=== PATIENT | female | born 2005 | race Caucasian/White ===

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

== ENCOUNTER → 2023-02-16 | Outpatient (REF) | payer OTHER ==
[2023-02-16 15:40] LABS: GC DNA AMPLIFICATION NEGATIVE (NEGATIVE)
== END ==
LOC: M SFHCWAGY 13:04
PROVIDERS: ATTEND Specialist
DX: Z34.02 Encounter for supervision of normal first pregnancy, second trimester (principal)

== ENCOUNTER → 2023-02-23 | Outpatient (CLI) | payer OTHER | LOC: M WHC 08:52 | PROVIDERS: ATTEND Obstetrics & Gynecology | DX: Z34.92 Encounter for supervision of normal pregnancy, unspecified, second trimester (principal) ==

== ENCOUNTER → 2023-04-02 | Outpatient (CLI) | payer OTHER | LOC: M WHC 11:51 | PROVIDERS: ATTEND Obstetrics & Gynecology | DX: Z34.02 Encounter for supervision of normal first pregnancy, second trimester (principal) ==

== ENCOUNTER → 2023-04-22 | Outpatient (CLI) | payer OTHER ==
[2023-04-22 14:04] LABS: HEMATOCRIT 32.7 % (36.0-47.0); HEMOGLOBIN 10.6 g/dl (12.0-15.5); MEAN CORPUSCULAR HEMOGLOBIN 28.3 pg (27.0-33.0); MEAN CORPUSCULAR HGB CONC 32.4 g/dl (32.0-36.5); MEAN CORPUSCULAR VOLUME 87.2 fl (80.0-96.0); PLATELET COUNT, AUTOMATED 285 10^3/uL (150-450); RED BLOOD COUNT 3.75 10^6/uL (4.00-5.40); WHITE BLOOD COUNT 8.8 10^3/uL (4.0-10.0)
[2023-04-22 16:00] LABS: GC DNA AMPLIFICATION NEGATIVE (NEGATIVE)
== END ==
LOC: M PLALAB 08:41
PROVIDERS: ATTEND Obstetrics & Gynecology
DX: Z34.02 Encounter for supervision of normal first pregnancy, second trimester (principal)

== ENCOUNTER → 2023-06-16 | Outpatient (REF) | payer OTHER | LOC: M PLALAB 13:59 | PROVIDERS: ATTEND Advanced Practice Midwife | DX: Z34.80 Encounter for supervision of other normal pregnancy, unspecified trimester (principal) ==

== ENCOUNTER → 2023-07-03 | Outpatient (REF) | payer OTHER | LOC: M SFHCADAM 12:41 | PROVIDERS: ATTEND Physician Assistant | DX: R19.7 Diarrhea, unspecified (principal) ==

== ENCOUNTER 2023-07-07 16:15 | Inpatient (IN) | payer OTHER ==
[~2023-07-07] VITALS: Ht 162.6 cm; Wt 96.8 kg
[2023-07-07 16:33] VITALS: BP 135/84
[2023-07-07] MEDS ORDERED: HOME MED LIST COMPLETE! XX SCH (16:35)
[2023-07-07] MEDS ORDERED: OXYTOCIN DRIP 30 UNITS in IV 1 EA IV PRN (17:20)
[2023-07-07] MEDS ORDERED: LIDOCAINE 1% MDV 20ML VIAL INFIL PRN (17:20)
[2023-07-07 17:41] LABS: HEMATOCRIT 31.1 % (36.0-47.0); HEMOGLOBIN 10.3 g/dl (12.0-15.5); MEAN CORPUSCULAR HEMOGLOBIN 26.5 pg (27.0-33.0); MEAN CORPUSCULAR HGB CONC 33.1 g/dl (32.0-36.5); MEAN CORPUSCULAR VOLUME 79.9 fl (80.0-96.0); PLATELET COUNT, AUTOMATED 350 10^3/uL (150-450); RED BLOOD COUNT 3.89 10^6/uL (4.00-5.40); WHITE BLOOD COUNT 9.9 10^3/uL (4.0-10.0)
[2023-07-07] MEDS ORDERED: FAMOTIDINE 20 MG TAB PO ONE (18:30)
[2023-07-07 19:15] VITALS: BP 134/82
[2023-07-07] MEDS: miSOPROStol 50MCG 1/2 TABLET SL SCH ×2 (19:15→23:15)
[2023-07-07 20:16] VITALS: BP 129/87
[2023-07-07] MEDS ORDERED: NALBUPHINE HCL 1MG/0.1ML (100MG/10ML) MDV IV ONE (21:15)
[2023-07-07 21:43] VITALS: BP 131/75
[2023-07-07] MEDS ORDERED: ONDANSETRON 4MG 2ML VIAL IV PRN (22:30)
[2023-07-07 23:12] VITALS: BP 117/74
[2023-07-07] MEDS ORDERED: LR 1,000 ML IV SCH (23:35)
[2023-07-07] MEDS ORDERED: OXYTOCIN DRIP 30 UNITS in IV 1 EA IV SCH (23:35)
[2023-07-08] VITALS (26 sets, daily range): BP systolic 115–144; BP diastolic 66–102; O2SAT 98
[2023-07-08] MEDS ORDERED: EPIDURAL/PCA KEYS XX PRN (00:10)
[2023-07-08] MEDS ORDERED: ONDANSETRON 4MG 2ML VIAL IV PRN (00:10)
[2023-07-08] MEDS ORDERED: LR 500 ML IV PRN (00:10)
[2023-07-08] MEDS ORDERED: diphenhydrAMINE 50MG/ML VIAL IV PRN (00:10)
[2023-07-08] MEDS ORDERED: ePHEDrine SULFATE 25 MG/5 ML(5MG/ML) SYRINGE IVP PRN (00:10)
[2023-07-08] MEDS ORDERED: FENTANYL/ROPIVACAINE/NACL BAG 100 ML EPIDURAL SCH (00:10)
[2023-07-08] MEDS ORDERED: NALOXONE INJ 0.4MG/1ML VIAL IV PRN (00:10)
[2023-07-08] MEDS ORDERED: DOCUSATE SODIUM 100MG CAPSULE PO PRN (02:45)
[2023-07-08] MEDS ORDERED: METHYLERGONOVINE MALEATE 0.2 MG TAB PO PRN (02:45)
[2023-07-08] MEDS ORDERED: DIBUCAINE 1% OINTMENT 30GM TOP PRN (02:45)
[2023-07-08] MEDS ORDERED: RHOGAM 300MCG (1500IU) INJ IM SCH (02:45)
[2023-07-08] MEDS ORDERED: ACETAMINOPHEN TAB 650MG DOSE (2X325MG) PO PRN (02:45)
[2023-07-08] MEDS: IBUPROFEN 800 MG TAB PO PRN ×2 (08:26→17:48)
[2023-07-08] MEDS: PRENATAL VITAMINS CHEWABLE TABLET PO SCH (08:26)
[2023-07-08] MEDS: ACETAMINOPHEN 500 MG TAB PO PRN (15:52)
[2023-07-09] MEDS: ACETAMINOPHEN 500 MG TAB PO PRN (04:59)
[2023-07-09 06:00] VITALS: BP 131/80; O2SAT 100
[2023-07-09] MEDS: PRENATAL VITAMINS CHEWABLE TABLET PO SCH (09:21)
[2023-07-09] MEDS: IBUPROFEN 600MG TAB PO PRN ×2 (09:21→18:40)
[2023-07-09 18:00] VITALS: BP 126/68; O2SAT 99
[2023-07-10] MEDS: IBUPROFEN 800 MG TAB PO PRN (03:31)
[2023-07-10 06:00] VITALS: BP 127/78; O2SAT 99
[2023-07-10] MEDS: PRENATAL VITAMINS CHEWABLE TABLET PO SCH (08:09)
[2023-07-10] MEDS ORDERED: MEASLES,MUMPS,RUBELLA VACCINE INJ (MMR-II) SC.IMMUN ONE (09:00)
== END 2023-07-10 15:00 | disposition home or self-care (01) | DRG 560 ==
LOC: M LDO 16:15 → M LDI 17:09 → M OBS 07-08 05:00
PROVIDERS: ADMIT Specialist; ATTEND Specialist
PROC: 10E0XZZ Delivery of Products of Conception, External Approach (ICD-10-PCS; principal; 2023-07-08)
PROC: 0KQM0ZZ Repair Perineum Muscle, Open Approach (ICD-10-PCS; 2023-07-08)
DX: O42.02 Full-term premature rupture of membranes, onset of labor within 24 hours of rupture (principal); Z3A.39 39 weeks gestation of pregnancy; Z88.1 Allergy status to other antibiotic agents; Z88.2 Allergy status to sulfonamides; Z37.0 Single live birth; O70.1 Second degree perineal laceration during delivery

== ENCOUNTER → 2025-06-21 | Outpatient (CLI) | payer OTHER ==
[2025-06-21 12:57] LABS: URINE PREG TEST NEGATIVE (NEGATIVE)
[2025-06-21 13:00] LABS: BASO # 0.1 10^3/uL (0.0-0.2); BASO % 1.0 % (0.0-1.0); EOS # 0.2 10^3/uL (0.0-0.5); EOS % 4.2 % (0.0-3.0); LYMPH # 2.2 10^3/uL (1.5-5.0); LYMPH % 38.6 % (24.0-44.0); MONO # 0.5 10^3/uL (0.0-0.8); MONO % 9.1 % (2.0-8.0); NEUTROPHILS # 2.7 10^3/uL (1.5-8.5); NEUTROPHILS % 46.8 % (36.0-66.0); PLATELET COUNT, AUTOMATED 317 10^3/uL (150-450)
[2025-06-21 13:26] LABS: ALT/SGPT 18 U/L (7.0-40); AST/SGOT 24 U/L (<34); CALCIUM LEVEL 9.6 MG/DL (8.5-10.1); CARBON DIOXIDE LEVEL 28 MMOL/L (20-31); CHLORIDE LEVEL 105 MMOL/L (98-107); CREATININE FOR GFR 0.75 MG/DL (0.55-1.30); GLOMERULAR FILTRATION RATE > 90.0 (>60); POTASSIUM SERUM 4.1 MMOL/L (3.5-5.1); SODIUM LEVEL 142 MMOL/L (136-145)
[2025-06-21 13:29] LABS: TOTAL 25(OH) VITAMIN D 28.9 NG/ML (20.0-100.0)
== END ==
LOC: M LAB 12:24
PROVIDERS: ATTEND Nurse Practitioner Psychiatric/Mental Health
DX: F33.1 Major depressive disorder, recurrent, moderate (principal)